=== PATIENT | male | born 2000 | race Two or more races ===

== ENCOUNTER 2024-06-23 22:10 | Emergency (ER) | payer MEDICAID, SELFPAY ==
[2024-06-23 22:11] VITALS: BMI 31.4
[2024-06-23 22:30] VITALS: BP 158/93; PULSE 73; RESP 18; TEMP 36.9; O2SAT 95
--- NOTE | 2024-06-23 22:31 | PD.EDEAR ---
ED Ear RME/HPI General Chief complaint: Ear Stated complaint: RIGHT EARACHE Time Seen by Provider: 06/23/24 22:27 Arrival date/time: 06/23/24 22:10 RME / HPI RME / HPI Narrative: This section includes all my notes and documentations, including HPI, PE, and ED course. Jacoby Simpson MD HPI: 23yo male with no significant past medical history presents to the ED for a chief complaint of right ear pain x 1500. Patient states he was diagnosed with Strep at his PCP's office yesterday and has been taking amoxicillin. He states he started having right ear pain today that wouldn't subside, so he came in for evaluation. He denies any fever, chills or any other associated symptoms. No other complaints. ROS: All negative except as documented in HPI. Physical Exam: General: Alert and oriented. No acute distress when remaining still. Eyes: Conjunctivae and lids clear. ENT: No nasal congestion. Pharynx erythematous. Right TM and auditory canal severely erythematous and edematous. Neck: Supple. Heart: RRR. Lungs: No respiratory distress. Good air movement. No rhonchi, wheezing, rales. Abdomen: Soft and nontender. Legs: No clubbing, cyanosis, edema. Skin: Warm and dry. Neuro: Alert and oriented X 3. At this point, diagnoses include Strep throat, infection of the right ear. Treatment here included Tylenol with Codeine, Ibuprofen, and Zofran. Based on my best medical judgment, made decision no further evaluation or treatment indicated at this time. Patient understands and agrees to the discharge instructions customized and printed, see below. Discharge Instructions from Dr. Simpson printed for you: 1. Take amoxicillin prescribed by outside doctor yesterday and the eardrops prescribed today for your strep throat and right ear infection. 2. Ibuprofen 800 mg every 6-8 hours today and tomorrow to decrease inflammation then as needed. Tylenol codeine for severe pain. 3. For good hydration, increase oral fluid and maintain clear urine. If dark or yellow, increase oral fluid. Your body needs extra fluid when you are sick. 4. See a private doctor on 06/27/2024 if not completely better 5. Seek immediate medical care with worsening or with any concerns. Jacoby Simpson MD Related Data Previous Rx's ?Medication ?Instructions ?Recorded aluminum-mag hydroxide-simethicone 10 ml PO QID PRN indigestion #300 09/13/20 200 mg-200 mg-20 mg/5 mL oral susp mL (Maalox Advanced) acetaminophen 300 mg-codeine 30 mg 2 tab PO TID PRN pain #20 tabs 06/23/24 tablet codlmogt-fyzmts-BO-thonzonm 3.3 4 drp otic (ear) TID 7 days #10 mL 06/23/24 mg-3 mg-10 mg-0.5 mg/mL ear drops,susp (Cortisporin-TC) Allergies Allergy/AdvReac Type Severity Reaction Status Date / Time No Known Allergies Allergy Verified 06/23/24 22:11 Review of Systems Review of Systems Systems Reviewed: All systems reviewed, normal except as documented ED Exam Narrative Physical exam: As noted in HPI. Course Quality Measures none Orders Category Date Time Status ACETAMINOPHEN w/COD 300-30 [Tylenol w/Cod #3] Med 06/23/24 22:31 Discontinued 2 tab PO X1 ONE Ibuprofen Tab [Motrin Tab] Med 06/23/24 22:31 Discontinued 800 mg PO X1 ONE Ondansetron Odt [Zofran Odt] Med 06/23/24 22:31 Discontinued 4 mg PO X1 ONE Vital Signs Vital signs: Vital Signs Temperature 98.4 F 06/23/24 22:30 Pulse Rate 73 06/23/24 22:30 Respiratory Rate 18 06/23/24 22:30 Blood Pressure 158/93 H 06/23/24 22:30 Pulse Oximetry (%) 95 06/23/24 22:30 Oxygen Delivery Method Room Air 06/23/24 22:30 Ear MDM Narrative MDM Narrative:: Scribe Attestation: 06/23/24 - Sneha Parada am scribing for and in the presence of Dr. Simpson. Patient data External records reviewed:: [facility] previous records (Per chart review, patient has no relevant previous ED visits.) Clinical information provided by:: patient Social determinants that could affect healthcare access:: none Patient has the following chronic illnesses:: none How is presenting disease/condition affected by chronic disease/condition?: no chronic disease Evaluation data The following diagnostics were reviewed and interpreted by me:: other (specify) (none) Lab and/or radiology exams considered but not ordered:: none Interpretation Summary: none Medications / Prescriptions Medications or Prescriptions considered but not ordered:: none Medication administrations:: Medication Administration History Discontinued Medications Acetaminophen/Codeine Phosphate (Acetaminophen W/Cod 300-30 Tablet) 2 tab PO X1 ONE Stop: 06/23/24 22:32 Ibuprofen (Ibuprofen Tab 400 Mg Tablet) 800 mg PO X1 ONE Stop: 06/23/24 22:32 Ondansetron HCl (Ondansetron Odt 4 Mg Tabrap) 4 mg PO X1 ONE; Protocol Stop: 06/23/24 22:32 Tylenol with Codeine, Ibuprofen, Zofran Consultations Consultation(s) initiated? (list below): No Diagnosis Ear Differential Diagnosis: otitis externa, otitis media, foreign body in ear, ruptured TM and cerumen impaction Most likely diagnosis given after review of the tests above:: Strep throat, Infection of the right ear Admission Indicated Admission indicated?: not indicated Explain why admission is indicated or not indicated:: No criteria for admission. Admission Request Was there a request for admission?: No Disposition Plan Disposition Plan: Discharge Discharge Attestation Discharge Attestation: The patient and all family members were given an opportunity to ask questions and understood the discharge instructions. Discharge instructions specifically effects, indications for sooner follow up or return to the emergency department, and the expected course of current diagnosis. Patient condition: Stable Discharge Plan Plan Patient Disposition: HOME (Self Care) Prescriptions/Referrals Prescriptions/Med Rec: New Cortisporin-TC 3.3-3-10-0.5 mg/mL drops,suspension 4 drp otic (ear) TID 7 Days Qty: 10 0RF acetaminophen-codeine 300-30 mg tablet 2 tab PO TID MDD 6 PRN (Reason: pain) Qty: 20 0RF No Action alum-mag hydroxide-simeth [Maalox Advanced] 200-200-20 mg/5 mL suspension 10 ml PO QID PRN (Reason: indigestion) Qty: 300 0RF Rx Instructions: administer between meals and at bedtime Problem List Clinical Impression: Strep throat, Infection of right ear Patient/Caregiver Discharge Instructions Education Materials: ED Otitis Media Antibiotic ..., ED Pharyngitis, Strep (Confirmed), ED External Ear Infection (Adult) Additional Instructions: Discharge Instructions from Dr. Simpson printed for you: 1. Take amoxicillin prescribed by outside doctor yesterday and the eardrops prescribed today for your strep throat and right ear infection. 2. Ibuprofen 800 mg every 6-8 hours today and tomorrow to decrease inflammation then as needed. Tylenol codeine for severe pain. 3. For good hydration, increase oral fluid and maintain clear urine. If dark or yellow, increase oral fluid. Your body needs extra fluid when you are sick. 4. See a private doctor on 06/27/2024 if not completely better 5. Seek immediate medical care with worsening or with any concerns. Print Language: Montenegrin Stand Alone Forms: Edwina Award Info., Patient Portal Info Letter
[2024-06-23] MEDS: ONDANSETRON ODT 4 MG TABRAP PO (22:51)
[2024-06-23] MEDS: IBUPROFEN TAB 400 MG TABLET 800 MG PO (22:52)
[2024-06-23] MEDS: ACETAMINOPHEN w/COD 300-30 TABLET 2 TAB PO (22:52)
== END 2024-06-23 23:50 | disposition home or self-care (01) ==
LOC: SERX 22:56
PROVIDERS: Emergency Provider Emergency Medicine; PCP Nurse Practitioner Family
DX: J02.0 Streptococcal pharyngitis (principal); H66.91 Otitis media, unspecified, right ear
CPT/HCPCS: 99282; Q0162; A9270